=== PATIENT | female | born 1960 | race Asian ===

== ENCOUNTER 2022-11-18 00:14 | Emergency (ER) | payer OTHER ==
[2022-11-18 00:50] LABS: APPEARANCE,URINE CLEAR (CLEAR); BILIRUBIN,URINE NEGATIVE (NEGATIVE); COLOR,URINE YELLOW (YELLOW); GLUCOSE,URINE >=1000 (NEGATIVE); KETONES,URINE 15 (NEGATIVE); LEUKOCYTE ESTERASE,URINE NEGATIVE (NEGATIVE); NITRITE,URINE NEGATIVE (NEGATIVE); OCCULT BLOOD,URINE NEGATIVE (NEGATIVE); PROTEIN,URINE NEGATIVE (NEGATIVE); UROBILINOGEN,URINE 0.2 mg/dL (0.2-1.0)
== END 2022-11-18 02:44 | disposition home or self-care (01) ==
LOC: DL.ED 00:14
DX: S76.011A Strain of muscle, fascia and tendon of right hip, initial encounter (principal); S90.31XA Contusion of right foot, initial encounter; E11.65 Type 2 diabetes mellitus with hyperglycemia; V49.10XA Passenger injured in collision with unspecified motor vehicles in nontraffic accident, initial encounter; Y92.410 Unspecified street and highway as the place of occurrence of the external cause
CPT/HCPCS: 81003; 82947; 93005; 93010; 99283; 99284